=== PATIENT | female | born 2000 | race Caucasian/White ===

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

== ENCOUNTER 2023-01-03 16:47 | Outpatient (REF) | payer MEDICAID, SELFPAY ==
[2023-01-04 12:51] LABS: GC Result Negative (Negative)
[2023-01-04 14:05] LABS: Chlamydia Result Positive (Negative)
== END 2023-01-03 16:48 | disposition home or self-care (01) ==
LOC: LBN 16:47
PROVIDERS: Visit Provider Obstetrics & Gynecology Gynecology
DX: Z11.3 Encounter for screening for infections with a predominantly sexual mode of transmission (principal)
CPT/HCPCS: 87491; 87591